=== PATIENT | female | born 1995 | race Caucasian/White ===

== ENCOUNTER 2020-10-20 14:31 | Emergency (ER) | payer MEDICAID ==
[~2020-10-20] VITALS: Ht 162.6 cm; Wt 45.4 kg
[~2020-10-20 14:31] MED LIST: ALBUAER3 IN; AZITTAB11 PO; METH4PAK PO; PSEU120T2 PO
[2020-10-20 15:15] VITALS: BP 106/62
[2020-10-20] MEDS ORDERED: TETANUS-DIPTH-ACEL PERTUSSIS 0.5ML SYR Tdap IM ONE (15:15)
== END 2020-10-20 15:43 | disposition home or self-care (01) ==
LOC: ER 14:31
DX: S71.112A Laceration without foreign body, left thigh, initial encounter (principal); J45.909 Unspecified asthma, uncomplicated; Z79.2 Long term (current) use of antibiotics; Z79.899 Other long term (current) drug therapy; Z88.0 Allergy status to penicillin; W26.0XXA Contact with knife, initial encounter; Y93.89 Activity, other specified; Y92.89 Other specified places as the place of occurrence of the external cause; Y99.8 Other external cause status
CPT/HCPCS: 12002; 90471; 90715